=== PATIENT | female | born 1975 | race Caucasian/White ===

== ENCOUNTER 2018-02-15 12:24 | Emergency (ER) | payer BC ==
--- NOTE | 2018-02-15 13:15 | EDPHYS ---
Physician Documentation [facility] Name: Liseth Fletcher Age: 42 yrs Sex: Female : 1975 Arrival Date: 02/15/2018 Time: 12:25 Bed 11 Private MD: PAKO ALEX ED Physician Marcellus Medrano HPI: 02/15 13:10 This 42 yrs old Female presents to ER via Ambulatory with complaints of Arm kb Pain, Arm Problem. 13:10 The patient or guardian complains of pain, that is acute. The complaints affect the kb right elbow. Context: The problem was sustained at an unknown location. Onset: The symptoms/episode began/occurred 1 month(s) ago. Treatment prior to arrival includes: no previous treatment. Modifying factors: The symptoms are alleviated by nothing. the symptoms are aggravated by movement. Associated signs and symptoms: Pertinent positives: pain, Pertinent negatives: decreased range of motion, deformity, erythema, fever, nausea, numbness, swelling, tingling, vomiting, warmth, weakness. Severity of symptoms: At their worst the symptoms were mild, moderate, in the emergency department the symptoms are unchanged. The patient has not experienced similar symptoms in the past. The patient has not recently seen a physician. Pt reports right elbow pain for one month that radiates to hand. Denies injury or trauma. States she spoke with Dr Wilkins about it and was told to do some stretches/exercises, but she hasn't been doing them. Reports she has muscle spasms in forearm as well. 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 - Social history:: Smoking status: Patient/guardian denies using tobacco. - Ebola Screening: : No symptoms or risks identified at this time. ROS: 13:09 Constitutional: Negative for fever, chills, and weight loss, Cardiovascular: Negative kb for chest pain, palpitations, and edema, Respiratory: Negative for shortness of breath, cough, wheezing, and pleuritic chest pain, Abdomen/GI: Negative for abdominal pain, nausea, vomiting, diarrhea, and constipation, Back: Negative for injury and pain, : Negative for injury, bleeding, discharge, and swelling, Skin: Negative for injury, rash, and discoloration, Neuro: Negative for headache, weakness, numbness, tingling, and seizure. 13:09 MS/extremity: Positive for pain, of the right elbow. Exam: 13:09 Constitutional: This is a well developed, well nourished patient who is awake, alert, kb and in no acute distress. Head/Face: Normocephalic, atraumatic. ENT: Nares patent. No nasal discharge, no septal abnormalities noted. Tympanic membranes are normal and external auditory canals are clear. Oropharynx with no redness, swelling, or masses, exudates, or evidence of obstruction, uvula midline. Mucous membranes moist. Neck: Trachea midline, no thyromegaly or masses palpated, and no cervical lymphadenopathy. Supple, full range of motion without nuchal rigidity, or vertebral point tenderness. No Meningismus. Chest/axilla: Normal chest wall appearance and motion. Nontender with no deformity. No lesions are appreciated. Cardiovascular: Regular rate and rhythm with a normal S1 and S2. No gallops, murmurs, or rubs. Normal PMI, no JVD. No pulse deficits. Respiratory: Lungs have equal breath sounds bilaterally, clear to auscultation and percussion. No rales, rhonchi or wheezes noted. No increased work of breathing, no retractions or nasal flaring. Abdomen/GI: Soft, non-tender, with normal bowel sounds. No distension or tympany. No guarding or rebound. No evidence of tenderness throughout. Back: No spinal tenderness. No costovertebral tenderness. Full range of motion. Skin: Warm, dry with normal turgor. Normal color with no rashes, no lesions, and no evidence of cellulitis. MS/ Extremity: Pulses equal, no cyanosis. Neurovascular intact. Full, normal range of motion. Neuro: Awake and alert, GCS 15, oriented to person, place, time, and situation. Cranial nerves II-XII grossly intact. Motor strength 5/5 in all extremities. Sensory grossly intact. Cerebellar exam normal. Normal gait. Vital Signs: 12:39 BP 150 / 99; Pulse 83; Resp 16; Temp 97.4; Pulse Ox 98% on R/A; la1 MDM: 12:53 Patient medically screened. kb 13:09 Data reviewed: vital signs, nurses notes. Data interpreted: Pulse oximetry: on room air kb is 98 %. Interpretation: normal. Counseling: I had a detailed discussion with the patient and/or guardian regarding: the historical points, exam findings, and any diagnostic results supporting the discharge/admit diagnosis, the need for outpatient follow up, a orthopedic surgeon, to return to the emergency department if symptoms worsen or persist or if there are any questions or concerns that arise at home. Administered Medications: No medications were administered Disposition: 18:00 Co-signature as Attending Physician, Marcellus Medrano MD. rn Disposition: 02/15/18 13:13 Discharged to Home. Impression: Pain in right elbow. - Condition is Stable. - Discharge Instructions: Musculoskeletal Pain. - Prescriptions for Cyclobenzaprine 10 mg Oral Tablet - take 1 tablet by ORAL route every 8 hours As needed; 21 tablet. - Work release form, Medication Reconciliation Form, Thank You Letter, Antibiotic Education, Prescription Opioid Use form. - Follow up: Private Physician; When: 2 - 3 days; Reason: Recheck today's complaints, Continuance of care, Re-evaluation by your physician. Follow up: Emergency Department; When: As needed; Reason: Worsening of condition. Signatures: Tasneem Garcias, WRAPPER STEMMER HAND-C WRAPPER STEMMER HAND-Ckb Aundrea Fabian RN RN iw Nieto, Roman, MD MD rn Attema, Lee, RN RN la1 Corrections: (The following items were deleted from the chart) 13:15 13:10 Pt reports right elbow pain for one month that radiates to hand. Denies injury or kb trauma. States she spoke with Dr Wilkins about it and was told to do some stretches/exercises, but she hasn't been doing them. . kb 13:46 13:13 02/15/2018 13:13 Discharged to Home. Impression: Pain in right elbow. Condition iw is Stable. Forms are Medication Reconciliation Form, Thank You Letter, Antibiotic Education, Prescription Opioid Use. Follow up: Private Physician; When: 2 - 3 days; Reason: Recheck today's complaints, Continuance of care, Re-evaluation by your physician. Follow up: Emergency Department; When: As needed; Reason: Worsening of condition. kb
--- NOTE | 2018-02-15 13:15 | ER ---
Nurse's Notes [facility] Name: Liseth Fletcher Age: 42 yrs Sex: Female : 1975 Arrival Date: 02/15/2018 Time: 12:25 Bed 11 Private MD: PAKO ALEX Diagnosis: Pain in right elbow Presentation: 02/15 12:37 Presenting complaint: Patient states: for the last month I have had on and off pain in la1 my right arm, this morning I had slept with it bent and I couldn't straighten it. Transition of care: patient was not received from another setting of care. Onset of symptoms was February 15, 2018. Risk Assessment: Do you want to hurt yourself or someone else? Patient reports no desire to harm self or others. Initial Sepsis Screen: Does the patient meet any 2 criteria? No. Patient's initial sepsis screen is negative. Does the patient have a suspected source of infection? No. Patient's initial sepsis screen is negative. Care prior to arrival: None. 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 - Social history:: Smoking status: Patient/guardian denies using tobacco. - Ebola Screening: : No symptoms or risks identified at this time. Screenin:49 Abuse screen: Denies threats or abuse. Nutritional screening: No deficits noted. la1 Tuberculosis screening: No symptoms or risk factors identified. Fall Risk None identified. Assessment: 12:49 General: Appears in no apparent distress. Behavior is calm, cooperative, appropriate la1 for age. Pain: Complains of pain in right elbow. Neuro: Level of Consciousness is awake, alert, obeys commands, Oriented to person, place, time, situation. Cardiovascular: Capillary refill < 3 seconds Patient's skin is warm and dry. Respiratory: Airway is patent Respiratory effort is even, unlabored, Respiratory pattern is regular, symmetrical, Breath sounds are clear bilaterally. GI: No signs and/or symptoms were reported involving the gastrointestinal system. : No signs and/or symptoms were reported regarding the genitourinary system. Vital Signs: 12:39 BP 150 / 99; Pulse 83; Resp 16; Temp 97.4; Pulse Ox 98% on R/A; la1 ED Course: 12:25 Patient arrived in ED. sb2 12:26 PAKO ALEX is Private Physician. sb2 12:38 Triage completed. la1 12:39 Arm band placed on right wrist. la1 12:41 Tasneem Garcias FNP-C is [facility]. kb 12:41 Marcellus Medrano MD is Attending Physician. kb 12:50 Call light in reach. Side rails up X 1. la1 13:06 Aundrea Fabian, RN is Primary Nurse. iw 13:45 No provider procedures requiring assistance completed. Patient did not have IV access iw during this emergency room visit. Administered Medications: No medications were administered Outcome: 13:13 Discharge ordered by MD. kb 13:45 Discharged to home ambulatory. iw 13:45 Condition: good 13:45 Discharge instructions given to patient, Instructed on discharge instructions, follow up and referral plans. medication usage, Demonstrated understanding of instructions, follow-up care, medications, Prescriptions given X 1. 13:46 Patient left the ED. iw Signatures: Tasneem Garcias FNP-C FNP-Aundrea Rossi, RN FARRAH iw Rodolfo Ro RN RN la1 Sakshi Collier sb2
== END 2018-02-15 13:46 | disposition home or self-care (01) ==
LOC: ER 12:24
DX: M25.521 Pain in right elbow (principal); I10 Essential (primary) hypertension
CPT/HCPCS: 99282